=== PATIENT | female | born 1960 | race Two or more races ===

== ENCOUNTER 2024-03-16 11:21 | Inpatient (IN) | payer OTHER, MEDICAID ==
[~2024-03-16] VITALS: Ht 175.3 cm; Wt 86.9 kg
[~2024-03-16 11:21] MED LIST: BACL20TA PO; LEVO25TA6 PO; LISI20TA56 PO; MET25T PO; METR-344 PO; PANT40T PO; QUET200T30 PO; SEMA2INJ3 SC; SENN-58 PO; SULF400T11 PO; [UNRECOGNIZED DRUG - CODE] IV
[2024-03-16 11:30] VITALS: PULSE 74; RESP 28; O2SAT 95
[2024-03-16] MEDS: SODIUM CHLORIDE 0.9% 1,000 ML IVB ONE (11:50)
[2024-03-16] MEDS: SUCCINYLCHOLINE CHLORIDE 20 MG/ML 10ML VIAL IV ONE ×2 (12:01→12:04)
[2024-03-16] MEDS: ETOMIDATE (2MG/ML) 20ML VIAL IV ONE ×2 (12:01→12:03)
[2024-03-16] MEDS: MIDAZOLAM DRIP 50 mg/50mL 50 ML IV ONE (12:15)
[2024-03-16] MEDS: MIDAZOLAM DRIP 50 mg/50mL 50 ML IV SCH (12:22)
[2024-03-16 12:27] LABS: Urine Bacteria MANY /hpf (None Seen); Urine Blood 1+ /uL (Negative); Urine Budding Yeast MANY /hpf (None Seen); Urine Clarity Ex.Turbid (Clear); Urine Color Yellow (Yellow); Urine Protein, UAD 2+ (Negative); Urine Urobilinogen Normal (Negative); Urine WBC 109 /hpf (0 - 5); Urine WBC Clumps PRESENT /hpf (None Seen)
[2024-03-16] MEDS: fentaNYL Drip 2500mCg/250mlNS 250 ML IV SCH (12:37)
[2024-03-16] MEDS ORDERED: EPINEPHrine HCL 250 ML IV SCH (12:45)
[2024-03-16] MEDS: NOREPINEPHRINE 8 MG/250ML KIT 250 ML IV SCH (13:00)
[2024-03-16 13:38] LABS: Basophils # (auto) 0.1 10 ^3/uL (0-0.2); Basophils % (auto) 0.4 % (0.0-2.0); Eosinophils # (auto) 0 10 ^3/uL (0-0.8); Hematocrit 26.9 % (36.0-46.0); Hemoglobin 8.3 g/dL (12.2-16.2); Lymphocytes # (auto) 0.7 10 ^3/uL (0.4-5.4); Lymphocytes % (auto) 3.9 % (10.0-50.0); Mean Corpuscular Hgb Conc. 30.6 g/dL (32.0-36.0); Mean Corpuscular Volume 88.2 fL (80.0-100.0); Monocytes # (auto) 2.2 10 ^3/uL (0-1.3); Monocytes % (auto) 12.2 % (0.0-12.0); Neutrophils # (auto) 15.2 10 ^3/uL (1.6-8.6); Neutrophils % (auto) 83.5 % (37.0-80.0); Platelet Count (auto) 268 10^3/uL (140-450); Red Blood Cells 3.05 10^6/uL (4.0-5.20); White Blood Cell 18.3 10^3/uL (4.4-10.8)
[2024-03-16 13:40] LABS: Red Cell Distribution Width 22.1 % (11.8-14.3)
[2024-03-16 13:50] LABS: Albumin 3.2 g/dL (3.2-4.8); Alkaline Phosphatase 97 U/L (46-116); Anion Gap 14 (5-15); Aspartate Aminotransferase 9 U/L (13-40); BUN/Creatinine Ratio 17.9 (10.0-20.0); Bilirubin, Total 0.2 mg/dL (0.2-1.0); Blood Urea Nitrogen 38 mg/dL (9-23); Calcium 9.9 mg/dL (8.7-10.4); Carbon Dioxide 15 mmol/L (20-31); Chloride 115 mmol/L (98-107); Glucose 104 mg/dL (74-106); Potassium 3.9 mmol/L (3.5-5.1); Sodium 144 mmol/L (136-145); Total Protein 5.1 g/dL (5.7-8.2)
[2024-03-16] MEDS: cefTRIAXone 1GM/50ML D5W 50 ML IV ONE (13:52)
[2024-03-16] MEDS: VANCOMYCIN 1GM/200ML PREMIX 200 ML IV ONE (13:52)
[2024-03-16] MEDS: SODIUM CHLORIDE 0.9% 1,800 ML IV ONE (13:52)
[2024-03-16 13:55] LABS: Alanine Aminotransferase < 9 U/L (7-40)
[2024-03-16] MEDS: NOREPINEPHRINE 8 MG/250ML KIT 250 ML IV ONE (14:02)
[2024-03-16] MEDS ORDERED: LEVO-848 PO (15:06)
[2024-03-16] MEDS ORDERED: CEFE2INJ IV (15:06)
[2024-03-16] MEDS ORDERED: PANT1INJ3 PO (15:06)
[2024-03-16] MEDS ORDERED: METO200T42 PO (15:06)
[2024-03-16] MEDS ORDERED: QUET300T14 PO (15:06)
[2024-03-16] MEDS ORDERED: ZOFR4T PO (15:06)
[2024-03-16] MEDS ORDERED: PREG200C19 PO (15:06)
[2024-03-16] MEDS ORDERED: APIX5TAB PO (15:06)
[2024-03-16] MEDS ORDERED: HYDR50TA69 PO (15:06)
[2024-03-16] MEDS ORDERED: OXYC325T14 PO (15:06)
[2024-03-16] MEDS ORDERED: ESCI10TA PO (15:06)
[2024-03-16 15:17] LABS: Base Excess -11.4 mmol/L (-2.0-3.0)
[2024-03-16 16:30] VITALS: BP 111/71; PULSE 72; RESP 18; O2SAT 94
[2024-03-16] MEDS ORDERED: VANCOMYCIN PER PHARMACY 0 MG IV SCH (17:45)
[2024-03-16] MEDS: CEFEPIME 1GM/ 50ML 50 ML IV ONE (18:56)
[2024-03-16 19:30] VITALS: PULSE 64; RESP 16; O2SAT 100
[2024-03-16] MEDS: VANCOMYCIN 500 MG in D5W 5% 100 ML IV ONE (19:34)
[2024-03-16] MEDS: SODIUM BICARB 50mEq/50ml Vial 50 ML in D5W 5% 1,000 ML IV ONE (19:35)
[2024-03-16 19:43] VITALS: BP 118/73; PULSE 70; RESP 17; O2SAT 95
[2024-03-16 19:52] LABS: Triglycerides 162 mg/dL (< 150)
[2024-03-16 19:53] LABS: LDL Cholesterol 103 mg/dL (< 100)
[2024-03-16 19:54] LABS: Cholesterol 194 mg/dL (< 200); HDL Cholesterol 36 mg/dL (40-59)
[2024-03-16 20:22] VITALS: BP 109/70; PULSE 71; RESP 18; O2SAT 95
[2024-03-16 21:45] VITALS: BP 112/67; PULSE 66; RESP 17; O2SAT 93
[2024-03-17] VITALS (35 sets, daily range): BP systolic 88–131; BP diastolic 37–73; PULSE 58–82; RESP 16–18; TEMP 98.4–99.6; O2SAT 89–96
[2024-03-17 04:06] LABS: Base Excess -8.5 mmol/L (-2.0-3.0)
[2024-03-17] MEDS: SODIUM BICARB 8.4% 50Meq/50ml SYR Vial IV ONE (06:44)
[2024-03-17 07:23] LABS: Hematocrit 27.6 % (36.0-46.0); Hemoglobin 8.7 g/dL (12.2-16.2); Mean Corpuscular Hemoglobin 27.1 pg (28.0-32.0); Mean Corpuscular Hgb Conc. 31.3 g/dL (32.0-36.0); Mean Corpuscular Volume 86.6 fL (80.0-100.0); Platelet Count (auto) 258 10^3/uL (140-450); Red Blood Cells 3.19 10^6/uL (4.0-5.20); White Blood Cell 14.9 10^3/uL (4.4-10.8)
[2024-03-17 07:31] LABS: Basophils % (manual) 0 (0.0-2.0); Blast Cells 0; Metamyelocytes % 0; Myelocytes % 0; Promyelocytes % 0; Reactive Lymphocytes 0
[2024-03-17 07:32] LABS: Albumin 2.9 g/dL (3.2-4.8); Alkaline Phosphatase 92 U/L (46-116); Anion Gap 12 (5-15); Aspartate Aminotransferase 11 U/L (13-40); Bilirubin, Total 0.2 mg/dL (0.2-1.0); Calcium 9.1 mg/dL (8.7-10.4); Carbon Dioxide 17 mmol/L (20-31); Chloride 115 mmol/L (98-107); Glucose 117 mg/dL (74-106); Potassium 3.6 mmol/L (3.5-5.1); Sodium 144 mmol/L (136-145); Total Protein 4.3 g/dL (5.7-8.2)
[2024-03-17 07:33] LABS: Alanine Aminotransferase < 9 U/L (7-40); Blood Urea Nitrogen 49 mg/dL (9-23)
[2024-03-17] MEDS: PANTOPRAZOLE 40 MG/10 ML VIAL INJ IV SCH (10:12)
[2024-03-17] MEDS: CEFEPIME 1GM/ 50ML 50 ML IV SCH (10:12)
[2024-03-17] MEDS: ENOXAPARIN SOD 40 MG/0.4 ML SYRINGE SC SCH (10:12)
[2024-03-17 12:38] LABS: Band Neutrophils % (manual) 14; Eosinophils % (manual) 2 (0-7); Lymphocytes % (manual) 14 (10.0-50.0); Monocytes % (manual) 7 (0-12)
[2024-03-17 12:39] LABS: Platelet Estimate Adequate
[2024-03-17] MEDS: SODIUM CHLORIDE 0.9% 1,000 ML IV SCH (13:11)
[2024-03-17 15:06] LABS: Creatinine, Urine 45.2 mg/dL (30.0-125.0)
[2024-03-17 15:09] LABS: Protein, Urine 275.2 mg/dL (1-14)
[2024-03-17 21:33] LABS: COVID19 ANTIGEN SOFIA FIA NEGATIVE (NEGATIVE); Rapid Influenza A Negative (Negative); Rapid Influenza B Negative (Negative)
[2024-03-17] MEDS: IPRATROPIUM BROM 0.5 MG/2.5ML INH SOL NEB PRN (22:20)
[2024-03-17] MEDS: ALBUTEROL SULF 2.5 MG/0.5ML(0.5%) NEB SOLN NEB PRN (22:20)
[2024-03-17] MEDS: Jevity 1.2 Cal/Fiber 1 Liter GT SCH (23:52)
[2024-03-18] VITALS (108 sets, daily range): BP systolic 75–151; BP diastolic 45–84; PULSE 74–93; RESP 12–30; TEMP 96.4–98.4; O2SAT 88–100
[2024-03-18 04:10] LABS: Basophils # (auto) 0.1 10 ^3/uL (0-0.2); Basophils % (auto) 0.7 % (0.0-2.0); Eosinophils # (auto) 0.3 10 ^3/uL (0-0.8); Eosinophils % (auto) 1.7 % (0.0-7.0); Hematocrit 28.2 % (36.0-46.0); Hemoglobin 8.9 g/dL (12.2-16.2); Lymphocytes # (auto) 1.4 10 ^3/uL (0.4-5.4); Lymphocytes % (auto) 8.2 % (10.0-50.0); Mean Corpuscular Hgb Conc. 31.7 g/dL (32.0-36.0); Mean Corpuscular Volume 84.9 fL (80.0-100.0); Monocytes # (auto) 1.5 10 ^3/uL (0-1.3); Monocytes % (auto) 9.1 % (0.0-12.0); Neutrophils # (auto) 13.5 10 ^3/uL (1.6-8.6); Neutrophils % (auto) 80.3 % (37.0-80.0); Platelet Count (auto) 235 10^3/uL (140-450); Red Blood Cells 3.32 10^6/uL (4.0-5.20); White Blood Cell 16.8 10^3/uL (4.4-10.8)
[2024-03-18 04:11] LABS: Chloride 116 mmol/L (98-107); Potassium 3.2 mmol/L (3.5-5.1); Sodium 144 mmol/L (136-145)
[2024-03-18 04:12] LABS: Anion Gap 9 (5-15); Calcium 9.3 mg/dL (8.7-10.4); Carbon Dioxide 19 mmol/L (20-31)
[2024-03-18 04:17] LABS: BUN/Creatinine Ratio 18.1 (10.0-20.0); Blood Urea Nitrogen 43 mg/dL (9-23); Glucose 88 mg/dL (74-106)
[2024-03-18 04:29] LABS: Red Cell Distribution Width 22.2 % (11.8-14.3)
[2024-03-18 07:21] LABS: Base Excess -10.3 mmol/L (-2.0-3.0)
[2024-03-18] MEDS: POTASSIUM EFFERVESENT TAB 25 MEQ PO ONE (09:37)
[2024-03-18 09:46] LABS: Base Excess -10.7 mmol/L (-2.0-3.0)
[2024-03-18] MEDS: SODIUM BICARB 50mEq/50ml Vial 100 ML in SOD CHL 0.45% 1,000 ML IV ONE (09:54)
[2024-03-18] MEDS: SODIUM BICARB 8.4% 50Meq/50ml SYR Vial IV ONE (09:56)
[2024-03-18] MEDS: HYDROCORTISONE SOD SUCC 100 MG/2ML INJ VIAL IV SCH (09:56)
[2024-03-18] MEDS: ENOXAPARIN SOD 30 MG/0.3 ML SYRINGE SC SCH (10:00)
[2024-03-18] MEDS: MEROPENEM 1GM IVPB 50 ML IV SCH (10:04)
[2024-03-18 14:51] LABS: Base Excess -5.5 mmol/L (-2.0-3.0)
[2024-03-18 16:44] LABS: Albumin 3.2 g/dL (3.2-4.8); Alkaline Phosphatase 110 U/L (46-116); Anion Gap 10 (5-15); Aspartate Aminotransferase 21 U/L (13-40); BUN/Creatinine Ratio 16.6 (10.0-20.0); Bilirubin, Total 0.2 mg/dL (0.2-1.0); Blood Urea Nitrogen 40 mg/dL (9-23); Calcium 9.3 mg/dL (8.7-10.4); Carbon Dioxide 20 mmol/L (20-31); Chloride 114 mmol/L (98-107); Glucose 125 mg/dL (74-106); Sodium 144 mmol/L (136-145)
[2024-03-18 16:45] LABS: Alanine Aminotransferase < 9 U/L (7-40); Potassium 5.3 mmol/L (3.5-5.1)
[2024-03-18] MEDS: NOREPINEPHRINE 8 MG/250ML KIT 250 ML IV SCH (16:45)
[2024-03-18] MEDS ORDERED: SODIUM BICARB 50mEq/50ml Vial 100 ML in SOD CHL 0.45% 1,000 ML IV ONE (18:00)
[2024-03-18] MEDS: FUROSEMIDE 100 MG/10ML VIAL IV ONE (18:46)
[2024-03-18] MEDS: SODIUM BICARB 50mEq/50ml Vial 75 ML in SOD CHL 0.45% 1,000 ML IV SCH (23:09)
[2024-03-19] VITALS (109 sets, daily range): BP systolic 76–151; BP diastolic 43–85; PULSE 70–101; RESP 12–31; TEMP 97.7–99; O2SAT 86–98
[2024-03-19 04:34] LABS: Anion Gap 10 (5-15); Carbon Dioxide 22 mmol/L (20-31); Chloride 114 mmol/L (98-107); Potassium 3.9 mmol/L (3.5-5.1); Sodium 146 mmol/L (136-145)
[2024-03-19 04:36] LABS: Calcium 8.9 mg/dL (8.7-10.4)
[2024-03-19 04:40] LABS: Glucose 151 mg/dL (74-106)
[2024-03-19 04:41] LABS: BUN/Creatinine Ratio 19.4 (10.0-20.0); Blood Urea Nitrogen 49 mg/dL (9-23)
[2024-03-19 06:45] LABS: Base Excess -3.7 mmol/L (-2.0-3.0)
[2024-03-19] MEDS: FREE WATER GT SCH (12:16)
[2024-03-19] MEDS: MAGNESIUM SULFATE 1GM/100ML 100 ML IV ONE (12:36)
[2024-03-19] MEDS: FUROSEMIDE 100 MG/10ML VIAL IV ONE (15:18)
[2024-03-19] MEDS ORDERED: VANCOMYCIN 500 MG in D5W 5% 100 ML IV ONE (20:00)
[2024-03-19] MEDS: LINEZOLID 600MG/300ML 300 ML IV SCH (21:50)
[2024-03-20] VITALS (105 sets, daily range): BP systolic 87–184; BP diastolic 48–106; PULSE 59–89; RESP 12–22; TEMP 97.5–99.1; O2SAT 88–100
[2024-03-20 04:32] LABS: Basophils # (auto) 0 10 ^3/uL (0-0.2); Basophils % (auto) 0.1 % (0.0-2.0); Eosinophils # (auto) 0 10 ^3/uL (0-0.8); Hemoglobin 7.8 g/dL (12.2-16.2); Monocytes # (auto) 0.6 10 ^3/uL (0-1.3); Neutrophils # (auto) 13.4 10 ^3/uL (1.6-8.6); Nucleated Red Blood Cells % 0.1 %; White Blood Cell 15.1 10^3/uL (4.4-10.8)
[2024-03-20 04:40] LABS: Hematocrit 23.5 % (36.0-46.0); Lymphocytes # (auto) 1.1 10 ^3/uL (0.4-5.4); Lymphocytes % (auto) 7.1 % (10.0-50.0); Mean Corpuscular Hemoglobin 27.1 pg (28.0-32.0); Mean Corpuscular Hgb Conc. 33.3 g/dL (32.0-36.0); Mean Corpuscular Volume 81.3 fL (80.0-100.0); Monocytes % (auto) 4.1 % (0.0-12.0); Neutrophils % (auto) 88.7 % (37.0-80.0); Platelet Count (auto) 224 10^3/uL (140-450); Red Blood Cells 2.89 10^6/uL (4.0-5.20)
[2024-03-20 04:45] LABS: Red Cell Distribution Width 21.4 % (11.8-14.3)
[2024-03-20 06:29] LABS: Base Excess -2.9 mmol/L (-2.0-3.0)
[2024-03-20] MEDS: FUROSEMIDE INJECTION 100 MG in SODIUM CHL 0.9% 100 ML IV SCH (09:01)
[2024-03-20 09:59] LABS: Chloride 111 mmol/L (98-107); Sodium 142 mmol/L (136-145)
[2024-03-20 10:00] LABS: Anion Gap 9 (5-15); Calcium 8.7 mg/dL (8.7-10.4); Carbon Dioxide 22 mmol/L (20-31)
[2024-03-20 10:05] LABS: BUN/Creatinine Ratio 19.2 (10.0-20.0); Blood Urea Nitrogen 55 mg/dL (9-23); Glucose 186 mg/dL (74-106)
[2024-03-20] MEDS: ACETYLCYSTEINE 10 %(100MG/ML) SOL 4ML NEB SCH (11:54)
[2024-03-20] MEDS: FREE WATER GT SCH (12:34)
[2024-03-20] MEDS: SODIUM CHL 0.9% 1000 ML BAG XX ONE (14:15)
[2024-03-20 15:27] LABS: INR 1.18 (0.9-1.15); Prothrombin Time 12.4 sec (9.3-11.8)
[2024-03-20] MEDS: ALBUMIN 25% 100 ML IV PRN (16:00)
[2024-03-20] MEDS: NOREPINEPHRINE 8 MG/250ML KIT 250 ML IV SCH (16:40)
[2024-03-20] MEDS: EPOETIN ALFA-EPBX 10,000 UNIT/1ML VIAL SC ONE (22:18)
[2024-03-21] VITALS (115 sets, daily range): BP systolic 101–177; BP diastolic 58–100; PULSE 60–98; RESP 18–21; TEMP 97.2–98.1; O2SAT 90–100
[2024-03-21 04:20] LABS: Chloride 108 mmol/L (98-107); Potassium 3.7 mmol/L (3.5-5.1); Sodium 142 mmol/L (136-145)
[2024-03-21 04:21] LABS: Anion Gap 9 (5-15); Calcium 8.7 mg/dL (8.7-10.4); Carbon Dioxide 25 mmol/L (20-31)
[2024-03-21 04:26] LABS: BUN/Creatinine Ratio 17.3 (10.0-20.0); Glucose 157 mg/dL (74-106)
[2024-03-21 04:29] LABS: Blood Urea Nitrogen 39 mg/dL (9-23)
[2024-03-21 04:45] LABS: Basophils # (auto) 0 10 ^3/uL (0-0.2); Eosinophils # (auto) 0 10 ^3/uL (0-0.8); Hematocrit 21.2 % (36.0-46.0); Mean Corpuscular Volume 82.1 fL (80.0-100.0); Neutrophils # (auto) 10.8 10 ^3/uL (1.6-8.6); Nucleated Red Blood Cells % 0.1 %
[2024-03-21 04:49] LABS: Basophils % (auto) 0.1 % (0.0-2.0); Eosinophils % (auto) 0.1 % (0.0-7.0); Hemoglobin 7.1 g/dL (12.2-16.2); Lymphocytes # (auto) 0.5 10 ^3/uL (0.4-5.4); Lymphocytes % (auto) 4.3 % (10.0-50.0); Mean Corpuscular Hemoglobin 27.4 pg (28.0-32.0); Mean Corpuscular Hgb Conc. 33.4 g/dL (32.0-36.0); Monocytes # (auto) 0.6 10 ^3/uL (0-1.3); Monocytes % (auto) 4.9 % (0.0-12.0); Neutrophils % (auto) 90.6 % (37.0-80.0); Platelet Count (auto) 163 10^3/uL (140-450); Red Blood Cells 2.59 10^6/uL (4.0-5.20)
[2024-03-21] MEDS: MIDAZOLAM DRIP 50 mg/50mL 50 ML IV SCH (07:00)
[2024-03-21] MEDS: BUMETANIDE INJECTION 25 MG in GIVE UN-DILUTED 0 ML IV SCH (09:30)
[2024-03-21] MEDS: DOPamine 1600MCG/ML D5W 250 ML IV SCH (10:41)
[2024-03-21] MEDS: hydrALAZINE HCL 20 MG/ML VL IV PRN (12:23)
[2024-03-21 12:59] LABS: Protein, Urine 89.3 mg/dL (1-14)
[2024-03-21 13:18] LABS: Creatinine, Urine 8.81 mg/dL (30.0-125.0); Urine Protein/Creatinine Ratio 10.14
[2024-03-22] VITALS (112 sets, daily range): BP systolic 102–187; BP diastolic 72–110; PULSE 65–143; RESP 17–26; TEMP 97.9–99.1; O2SAT 90–100
[2024-03-22 03:41] LABS: Basophils # (auto) 0 10 ^3/uL (0-0.2); Basophils % (auto) 0.2 % (0.0-2.0); Eosinophils # (auto) 0 10 ^3/uL (0-0.8); Eosinophils % (auto) 0.2 % (0.0-7.0); Hematocrit 35.3 % (36.0-46.0); Hemoglobin 11.6 g/dL (12.2-16.2); Lymphocytes # (auto) 0.6 10 ^3/uL (0.4-5.4); Lymphocytes % (auto) 3.3 % (10.0-50.0); Mean Corpuscular Hemoglobin 27.8 pg (28.0-32.0); Mean Corpuscular Volume 84.2 fL (80.0-100.0); Monocytes # (auto) 1.2 10 ^3/uL (0-1.3); Monocytes % (auto) 6.5 % (0.0-12.0); Neutrophils # (auto) 16.7 10 ^3/uL (1.6-8.6); Neutrophils % (auto) 89.8 % (37.0-80.0); Nucleated Red Blood Cells % 0.1 %; Platelet Count (auto) 209 10^3/uL (140-450); Red Blood Cells 4.19 10^6/uL (4.0-5.20); White Blood Cell 18.6 10^3/uL (4.4-10.8)
[2024-03-22 03:55] LABS: Anion Gap 10 (5-15); Carbon Dioxide 24 mmol/L (20-31); Chloride 106 mmol/L (98-107); Potassium 4.1 mmol/L (3.5-5.1); Sodium 140 mmol/L (136-145)
[2024-03-22 03:57] LABS: Calcium 9.2 mg/dL (8.7-10.4)
[2024-03-22 04:01] LABS: BUN/Creatinine Ratio 18.3 (10.0-20.0); Blood Urea Nitrogen 45 mg/dL (9-23); Glucose 134 mg/dL (74-106)
[2024-03-22 04:16] LABS: Red Cell Distribution Width 21.2 % (11.8-14.3)
[2024-03-22 05:00] LABS: Anisocytosis Slight; Stomatocytes Few
[2024-03-22 05:01] LABS: Large Platelets FEW
[2024-03-22 05:02] LABS: Platelet Estimate Adequa
[2024-03-22 07:42] LABS: Base Excess -2.8 mmol/L (-2.0-3.0)
[2024-03-23] VITALS (104 sets, daily range): BP systolic 51–179; BP diastolic 28–107; PULSE 81–99; RESP 15–39; TEMP 97.9–99.5; O2SAT 90–97
[2024-03-23 04:26] LABS: Basophils # (auto) 0 10 ^3/uL (0-0.2); Basophils % (auto) 0.3 % (0.0-2.0); Eosinophils # (auto) 0 10 ^3/uL (0-0.8); Eosinophils % (auto) 0.1 % (0.0-7.0); Hematocrit 30.8 % (36.0-46.0); Hemoglobin 10.2 g/dL (12.2-16.2); Lymphocytes # (auto) 0.5 10 ^3/uL (0.4-5.4); Lymphocytes % (auto) 3.1 % (10.0-50.0); Mean Corpuscular Hgb Conc. 33.1 g/dL (32.0-36.0); Mean Corpuscular Volume 84.5 fL (80.0-100.0); Monocytes # (auto) 0.8 10 ^3/uL (0-1.3); Monocytes % (auto) 5.2 % (0.0-12.0); Neutrophils # (auto) 13.8 10 ^3/uL (1.6-8.6); Neutrophils % (auto) 91.3 % (37.0-80.0); Nucleated Red Blood Cells % 0.1 %; Platelet Count (auto) 231 10^3/uL (140-450); Red Blood Cells 3.64 10^6/uL (4.0-5.20); White Blood Cell 15.1 10^3/uL (4.4-10.8)
[2024-03-23 04:27] LABS: Anion Gap 13 (5-15); Calcium 8.8 mg/dL (8.7-10.4); Carbon Dioxide 22 mmol/L (20-31); Chloride 104 mmol/L (98-107); Potassium 4.2 mmol/L (3.5-5.1); Sodium 139 mmol/L (136-145)
[2024-03-23 04:33] LABS: BUN/Creatinine Ratio 20.1 (10.0-20.0); Glucose 176 mg/dL (74-106)
[2024-03-23 04:45] LABS: Blood Urea Nitrogen 57 mg/dL (9-23)
[2024-03-23 06:46] LABS: Anisocytosis Slight
[2024-03-23 06:47] LABS: Large Platelets FEW; Ovalocytes FEW; Stomatocytes Few
[2024-03-23 06:48] LABS: Platelet Estimate Adequa
[2024-03-23 07:33] LABS: Base Excess -1.7 mmol/L (-2.0-3.0)
[2024-03-23] MEDS: SODIUM CHL 0.9% 1000 ML BAG XX ONE (11:09)
[2024-03-24] VITALS (71 sets, daily range): BP systolic 79–160; BP diastolic 54–97; PULSE 81–96; RESP 12–19; TEMP 98.3–98.8; O2SAT 91–100
[2024-03-24 03:56] LABS: Hematocrit 28.1 % (36.0-46.0); Hemoglobin 9.4 g/dL (12.2-16.2); Mean Corpuscular Hemoglobin 28.2 pg (28.0-32.0); Mean Corpuscular Hgb Conc. 33.4 g/dL (32.0-36.0); Mean Corpuscular Volume 84.4 fL (80.0-100.0); Platelet Count (auto) 233 10^3/uL (140-450); Red Blood Cells 3.33 10^6/uL (4.0-5.20); White Blood Cell 14.7 10^3/uL (4.4-10.8)
[2024-03-24 04:10] LABS: Anion Gap 14 (5-15); Carbon Dioxide 22 mmol/L (20-31); Chloride 103 mmol/L (98-107); Potassium 3.8 mmol/L (3.5-5.1); Sodium 139 mmol/L (136-145)
[2024-03-24 04:11] LABS: Calcium 8.7 mg/dL (8.7-10.4)
[2024-03-24 04:16] LABS: BUN/Creatinine Ratio 20.3 (10.0-20.0); Blood Urea Nitrogen 60 mg/dL (9-23); Glucose 144 mg/dL (74-106)
[2024-03-24 04:42] LABS: Red Cell Distribution Width 21.6 % (11.8-14.3)
[2024-03-24 04:44] LABS: Basophils % (manual) 0 (0.0-2.0); Blast Cells 0; Eosinophils % (manual) 0 (0-7); Myelocytes % 0; Promyelocytes % 0; Reactive Lymphocytes 0
[2024-03-24 06:18] LABS: Base Excess -4.7 mmol/L (-2.0-3.0)
[2024-03-24 06:34] LABS: Anisocytosis Slight; Band Neutrophils % (manual) 1; Large Platelets FEW; Lymphocytes % (manual) 4 (10.0-50.0); Metamyelocytes % 1; Monocytes % (manual) 6 (0-12); Platelet Estimate Adequate
[2024-03-24 06:35] LABS: Stomatocytes Few
[2024-03-24] MEDS: MICAFUNGIN SODIUM 100 MG in SODIUM CHL 0.9% 100 ML IV SCH (14:09)
[2024-03-25] VITALS (105 sets, daily range): BP systolic 69–148; BP diastolic 47–92; PULSE 79–114; RESP 14–32; TEMP 97.2–100.9; O2SAT 92–100
[2024-03-25 04:49] LABS: Hemoglobin 8.3 g/dL (12.2-16.2)
[2024-03-25 04:54] LABS: Anion Gap 12 (5-15); Carbon Dioxide 23 mmol/L (20-31); Chloride 103 mmol/L (98-107); Hematocrit 25.2 % (36.0-46.0); Mean Corpuscular Hemoglobin 27.9 pg (28.0-32.0); Mean Corpuscular Hgb Conc. 32.8 g/dL (32.0-36.0); Mean Corpuscular Volume 85.2 fL (80.0-100.0); Platelet Count (auto) 219 10^3/uL (140-450); Potassium 3.2 mmol/L (3.5-5.1); Red Blood Cells 2.96 10^6/uL (4.0-5.20); Sodium 138 mmol/L (136-145); White Blood Cell 15.8 10^3/uL (4.4-10.8)
[2024-03-25 04:55] LABS: Calcium 8.2 mg/dL (8.7-10.4)
[2024-03-25 05:00] LABS: BUN/Creatinine Ratio 21.5 (10.0-20.0); Blood Urea Nitrogen 64 mg/dL (9-23); Glucose 106 mg/dL (74-106)
[2024-03-25 05:09] LABS: Band Neutrophils % (manual) 0; Basophils % (manual) 0 (0.0-2.0); Blast Cells 0; Myelocytes % 0; Promyelocytes % 0; Reactive Lymphocytes 0; Red Cell Distribution Width 21.3 % (11.8-14.3)
[2024-03-25 06:31] LABS: Base Excess -1.8 mmol/L (-2.0-3.0)
[2024-03-25 07:59] LABS: Anisocytosis Slight; Eosinophils % (manual) 1 (0-7); Lymphocytes % (manual) 12 (10.0-50.0); Metamyelocytes % 2; Monocytes % (manual) 10 (0-12); Platelet Estimate Adequate
[2024-03-25] MEDS: POTASSIUM CHL 20MEQ/100ML 100 ML IV ONE (09:42)
[2024-03-25] MEDS: POTASSIUM CHLORIDE 20 MEQ in D5W 5% 1,000 ML IV SCH (13:15)
[2024-03-26] VITALS (106 sets, daily range): BP systolic 60–164; BP diastolic 40–86; PULSE 82–105; RESP 12–29; TEMP 98.1–99.3; O2SAT 95–100
[2024-03-26 04:12] LABS: Chloride 102 mmol/L (98-107); Potassium 3.9 mmol/L (3.5-5.1); Sodium 138 mmol/L (136-145)
[2024-03-26 04:13] LABS: Anion Gap 10 (5-15); Carbon Dioxide 26 mmol/L (20-31)
[2024-03-26 04:14] LABS: Calcium 8.1 mg/dL (8.7-10.4); Hemoglobin 7.4 g/dL (12.2-16.2)
[2024-03-26 04:18] LABS: BUN/Creatinine Ratio 18.1 (10.0-20.0); Glucose 108 mg/dL (74-106)
[2024-03-26 04:20] LABS: Hematocrit 22.3 % (36.0-46.0); Mean Corpuscular Hemoglobin 28.4 pg (28.0-32.0); Mean Corpuscular Hgb Conc. 33.2 g/dL (32.0-36.0); Mean Corpuscular Volume 85.4 fL (80.0-100.0); Platelet Count (auto) 173 10^3/uL (140-450); Red Blood Cells 2.61 10^6/uL (4.0-5.20); White Blood Cell 12.2 10^3/uL (4.4-10.8)
[2024-03-26 04:25] LABS: Blood Urea Nitrogen 37 mg/dL (9-23)
[2024-03-26 04:27] LABS: Red Cell Distribution Width 21.1 % (11.8-14.3)
[2024-03-26 04:29] LABS: Basophils % (manual) 0 (0.0-2.0); Blast Cells 0; Metamyelocytes % 0; Myelocytes % 0; Promyelocytes % 0
[2024-03-26 06:43] LABS: Band Neutrophils % (manual) 1; Eosinophils % (manual) 1 (0-7); Lymphocytes % (manual) 11 (10.0-50.0)
[2024-03-26 06:52] LABS: Anisocytosis Slight; Monocytes % (manual) 7 (0-12); Platelet Estimate Adequate
[2024-03-26 06:53] LABS: Base Excess 1.4 mmol/L (-2.0-3.0)
[2024-03-26 06:53] LABS: Large Platelets FEW
[2024-03-26 06:54] LABS: Target Cell FEW
[2024-03-26] MEDS: Nepro With Carb Steady 1 Liter Bottle GT SCH (15:00)
[2024-03-26] MEDS: LACTULOSE 20Gm/30ML SOLN GT SCH (22:19)
[2024-03-27] VITALS (105 sets, daily range): BP systolic 77–168; BP diastolic 47–97; PULSE 75–120; RESP 10–30; TEMP 97–99.2; O2SAT 80–100
[2024-03-27 04:08] LABS: Basophils # (auto) 0 10 ^3/uL (0-0.2); Basophils % (auto) 0.1 % (0.0-2.0); Eosinophils # (auto) 0 10 ^3/uL (0-0.8); Eosinophils % (auto) 0.1 % (0.0-7.0); Monocytes # (auto) 0.8 10 ^3/uL (0-1.3); Monocytes % (auto) 6.6 % (0.0-12.0)
[2024-03-27 04:14] LABS: Lymphocytes # (auto) 0.7 10 ^3/uL (0.4-5.4); Lymphocytes % (auto) 5.6 % (10.0-50.0); Mean Corpuscular Hemoglobin 28.4 pg (28.0-32.0); Mean Corpuscular Hgb Conc. 32.9 g/dL (32.0-36.0); Mean Corpuscular Volume 86.3 fL (80.0-100.0); Neutrophils # (auto) 10.3 10 ^3/uL (1.6-8.6); Neutrophils % (auto) 87.6 % (37.0-80.0); Nucleated Red Blood Cells % 0.1 %; Platelet Count (auto) 133 10^3/uL (140-450); Red Blood Cells 1.97 10^6/uL (4.0-5.20); White Blood Cell 11.7 10^3/uL (4.4-10.8)
[2024-03-27 04:16] LABS: Anion Gap 10 (5-15); Carbon Dioxide 27 mmol/L (20-31); Chloride 103 mmol/L (98-107); Potassium 3.1 mmol/L (3.5-5.1); Sodium 140 mmol/L (136-145)
[2024-03-27 04:18] LABS: Calcium 8.6 mg/dL (8.7-10.4)
[2024-03-27 04:22] LABS: BUN/Creatinine Ratio 19.6 (10.0-20.0); Blood Urea Nitrogen 45 mg/dL (9-23); Glucose 129 mg/dL (74-106)
[2024-03-27 04:45] LABS: Hemoglobin 5.6 g/dL (12.2-16.2); Red Cell Distribution Width 21.3 % (11.8-14.3)
[2024-03-27] MEDS: POTASSIUM CHL 20MEQ/100ML 100 ML IV ONE (05:30)
[2024-03-27 06:42] LABS: Base Excess 2.6 mmol/L (-2.0-3.0)
[2024-03-27] MEDS: HEPARIN 1,000 UNITS/ml 1ML VIAL IV ONE (12:45)
[2024-03-27] MEDS: HEPARIN 1,000 UNITS/ml 1ML VIAL ONE (13:14)
[2024-03-27] MEDS: ONDANSETRON HCL 4 MG/2 ML VIAL ONE (14:37)
[2024-03-27] MEDS: EPOETIN ALFA-EPBX 10,000 UNIT/1ML VIAL SC SCH (22:05)
[2024-03-27] MEDS: BUMETANIDE 2.5mg/10ml (0.25 mg/ml) INJ IV SCH (22:15)
[2024-03-28] VITALS (98 sets, daily range): BP systolic 105–162; BP diastolic 60–112; PULSE 77–101; RESP 9–31; TEMP 97.9–98.2; O2SAT 94–100
[2024-03-28 04:11] LABS: Basophils # (auto) 0 10 ^3/uL (0-0.2); Basophils % (auto) 0.1 % (0.0-2.0); Eosinophils # (auto) 0 10 ^3/uL (0-0.8); Eosinophils % (auto) 0.2 % (0.0-7.0); Hematocrit 25.1 % (36.0-46.0); Hemoglobin 8.5 g/dL (12.2-16.2); Lymphocytes # (auto) 1.1 10 ^3/uL (0.4-5.4); Lymphocytes % (auto) 10.2 % (10.0-50.0); Mean Corpuscular Hemoglobin 28.3 pg (28.0-32.0); Mean Corpuscular Hgb Conc. 34.1 g/dL (32.0-36.0); Monocytes # (auto) 0.6 10 ^3/uL (0-1.3); Monocytes % (auto) 5.8 % (0.0-12.0); Neutrophils # (auto) 9.2 10 ^3/uL (1.6-8.6); Neutrophils % (auto) 83.7 % (37.0-80.0); Nucleated Red Blood Cells % 0.1 %; Platelet Count (auto) 120 10^3/uL (140-450); Red Blood Cells 3.02 10^6/uL (4.0-5.20); Red Cell Distribution Width 19.1 % (11.8-14.3)
[2024-03-28 04:18] LABS: Chloride 104 mmol/L (98-107); Potassium 2.8 mmol/L (3.5-5.1); Sodium 141 mmol/L (136-145)
[2024-03-28 04:19] LABS: Anion Gap 10 (5-15); Calcium 8.5 mg/dL (8.7-10.4); Carbon Dioxide 27 mmol/L (20-31)
[2024-03-28 04:24] LABS: BUN/Creatinine Ratio 16.8 (10.0-20.0); Glucose 94 mg/dL (74-106)
[2024-03-28 04:26] LABS: Blood Urea Nitrogen 26 mg/dL (9-23)
[2024-03-28] MEDS: POTASSIUM CHL 20MEQ/100ML 100 ML IV SCH ×2 (05:50→15:01)
[2024-03-28 06:35] LABS: Base Excess 3.1 mmol/L (-2.0-3.0)
[2024-03-28] MEDS: MAGNESIUM SULFATE 1GM/100ML 100 ML IV ONE (08:24)
[2024-03-28 12:46] LABS: Potassium 3.1 mmol/L (3.5-5.1)
[2024-03-28 12:53] LABS: Magnesium 1.9 mg/dL (1.6-2.6)
[2024-03-29] VITALS (80 sets, daily range): BP systolic 119–173; BP diastolic 47–104; PULSE 74–95; RESP 11–32; TEMP 98.1–98.9; O2SAT 96–100
[2024-03-29 04:59] LABS: Basophils # (auto) 0 10 ^3/uL (0-0.2); Eosinophils # (auto) 0 10 ^3/uL (0-0.8); Eosinophils % (auto) 0.4 % (0.0-7.0); Hemoglobin 7.5 g/dL (12.2-16.2); Red Blood Cells 2.63 10^6/uL (4.0-5.20); White Blood Cell 9.3 10^3/uL (4.4-10.8)
[2024-03-29 05:03] LABS: Basophils % (auto) 0.3 % (0.0-2.0); Hematocrit 22.1 % (36.0-46.0); Lymphocytes # (auto) 0.9 10 ^3/uL (0.4-5.4); Lymphocytes % (auto) 9.6 % (10.0-50.0); Mean Corpuscular Hemoglobin 28.4 pg (28.0-32.0); Mean Corpuscular Hgb Conc. 33.8 g/dL (32.0-36.0); Mean Corpuscular Volume 83.9 fL (80.0-100.0); Monocytes # (auto) 0.5 10 ^3/uL (0-1.3); Monocytes % (auto) 5.1 % (0.0-12.0); Neutrophils # (auto) 7.9 10 ^3/uL (1.6-8.6); Neutrophils % (auto) 84.6 % (37.0-80.0); Nucleated Red Blood Cells % 0.2 %; Platelet Count (auto) 88 10^3/uL (140-450); Red Cell Distribution Width 19.3 % (11.8-14.3)
[2024-03-29 05:09] LABS: Chloride 103 mmol/L (98-107); Sodium 140 mmol/L (136-145)
[2024-03-29 05:10] LABS: Anion Gap 10 (5-15); Carbon Dioxide 27 mmol/L (20-31)
[2024-03-29 05:11] LABS: Calcium 8.5 mg/dL (8.7-10.4)
[2024-03-29 05:15] LABS: BUN/Creatinine Ratio 15.2 (10.0-20.0); Blood Urea Nitrogen 26 mg/dL (9-23); Glucose 86 mg/dL (74-106)
[2024-03-29] MEDS: POTASSIUM CHL 20MEQ/100ML 100 ML IV ONE (05:48)
[2024-03-29] MEDS: LINEZOLID 600MG/300ML 300 ML IV SCH (09:08)
[2024-03-29] MEDS: POTASSIUM CHL 20MEQ/100ML 100 ML IV SCH (09:10)
[2024-03-29] MEDS: MORPHINE SULFATE INJ 2 MG/ml SYRG IV PRN (15:19)
[2024-03-29] MEDS: EPOETIN ALFA-EPBX 10,000 UNIT/1ML VIAL SC SCH (22:00)
[2024-03-30] VITALS (63 sets, daily range): BP systolic 119–169; BP diastolic 54–117; PULSE 66–99; RESP 2–41; TEMP 98.1–98.6; O2SAT 94–100
[2024-03-30 04:43] LABS: Basophils # (auto) 0 10 ^3/uL (0-0.2); Eosinophils # (auto) 0.1 10 ^3/uL (0-0.8); Hemoglobin 7.6 g/dL (12.2-16.2); Lymphocytes # (auto) 0.7 10 ^3/uL (0.4-5.4); Monocytes # (auto) 0.4 10 ^3/uL (0-1.3); Platelet Count (auto) 79 10^3/uL (140-450)
[2024-03-30 04:47] LABS: Basophils % (auto) 0.3 % (0.0-2.0); Eosinophils % (auto) 0.6 % (0.0-7.0); Hematocrit 22.8 % (36.0-46.0); Lymphocytes % (auto) 8.8 % (10.0-50.0); Mean Corpuscular Hemoglobin 28.5 pg (28.0-32.0); Mean Corpuscular Hgb Conc. 33.4 g/dL (32.0-36.0); Mean Corpuscular Volume 85.4 fL (80.0-100.0); Monocytes % (auto) 5.3 % (0.0-12.0); Neutrophils # (auto) 7.1 10 ^3/uL (1.6-8.6); Nucleated Red Blood Cells % 0.3 %; Red Blood Cells 2.67 10^6/uL (4.0-5.20); Red Cell Distribution Width 19.3 % (11.8-14.3); White Blood Cell 8.4 10^3/uL (4.4-10.8)
[2024-03-30 04:52] LABS: Chloride 104 mmol/L (98-107); Potassium 3.3 mmol/L (3.5-5.1); Sodium 142 mmol/L (136-145)
[2024-03-30 04:53] LABS: Anion Gap 8 (5-15); Carbon Dioxide 30 mmol/L (20-31)
[2024-03-30 04:58] LABS: BUN/Creatinine Ratio 14.4 (10.0-20.0); Blood Urea Nitrogen 15 mg/dL (9-23); Glucose 89 mg/dL (74-106)
[2024-03-30] MEDS: POTASSIUM CHL 20MEQ/100ML 100 ML IV ONE (05:55)
[2024-03-30] MEDS ORDERED: CLINIMIX PER PHARMACY 0 ML IV SCH (09:30)
[2024-03-30] MEDS: MORPHINE SULFATE INJ 2 MG/ml SYRG IV PRN (09:53)
[2024-03-30 10:34] LABS: Magnesium 1.6 mg/dL (1.6-2.6)
[2024-03-30] MEDS: MAGNESIUM SULFATE 1GM/100ML 100 ML IV SCH (13:25)
[2024-03-30] MEDS ORDERED: DEXTROSE (50%) 50ML SYRG IV SCH (14:30)
[2024-03-30] MEDS: POTASSIUM CHL 20MEQ/100ML 100 ML IV SCH (15:54)
[2024-03-30] MEDS: InsuLIN REG 1unit/0.01ml Soln (100units/ml) SC SCH (18:00)
[2024-03-30] MEDS: ACCU-CHEK COMFORT CURVE STRIP VI SCH (18:11)
[2024-03-30] MEDS: AMINO ACID INFUSION IN D10W 1,000 ML IV SCH (20:04)
[2024-03-31] VITALS (38 sets, daily range): BP systolic 124–170; BP diastolic 68–95; PULSE 62–101; RESP 10–39; TEMP 97.6–98.5; O2SAT 96–100
[2024-03-31] MEDS: LABETALOL HCL 20 MG/4 ML VL IV PRN (00:49)
[2024-03-31] MEDS: ONDANSETRON HCL 4 MG/2 ML VIAL IV PRN (00:49)
[2024-03-31 05:03] LABS: Albumin 3.5 g/dL (3.2-4.8); Alkaline Phosphatase 70 U/L (46-116); Anion Gap 7 (5-15); Aspartate Aminotransferase < 8 U/L (13-40); BUN/Creatinine Ratio 17.9 (10.0-20.0); Bilirubin, Total 0.9 mg/dL (0.2-1.0); Blood Urea Nitrogen 19 mg/dL (9-23); Calcium 8.7 mg/dL (8.7-10.4); Carbon Dioxide 30 mmol/L (20-31); Chloride 100 mmol/L (98-107); Glucose 103 mg/dL (74-106); Magnesium 1.8 mg/dL (1.6-2.6); Phosphorus 2.8 mg/dL (2.4-5.1); Potassium 3.2 mmol/L (3.5-5.1); Sodium 137 mmol/L (136-145)
[2024-03-31 05:04] LABS: Total Protein 4.9 g/dL (5.7-8.2)
[2024-03-31 05:06] LABS: Alanine Aminotransferase < 9 U/L (7-40)
[2024-03-31] MEDS: POTASSIUM CHL 20MEQ/100ML 100 ML IV ONE (06:53)
[2024-03-31 09:23] LABS: Hepatitis B Surface Antigen Negative (Negative)
[2024-03-31] MEDS ORDERED: DOCUSATE SOD 100 MG CAP PO PRN (09:30)
[2024-03-31 09:44] LABS: Hepatitis A Ab IgM Negative
[2024-03-31 09:45] LABS: Hepatitis B Core IgM Negative; Hepatitis C Antibody Negative (Negative)
[2024-03-31] MEDS: amLODIPine BESYLATE 5 MG TAB PO SCH (10:24)
[2024-03-31] MEDS: POTASSIUM CHL 20MEQ/100ML 100 ML IV SCH (10:45)
[2024-03-31] MEDS: MAGNESIUM SULFATE 1GM/100ML 100 ML IV SCH (11:00)
[2024-04-01] VITALS (34 sets, daily range): BP systolic 117–180; BP diastolic 78–94; PULSE 66–88; RESP 16–37; TEMP 97.7–98.5; O2SAT 89–99
[2024-04-01 05:04] LABS: Basophils # (auto) 0.1 10 ^3/uL (0-0.2); Eosinophils # (auto) 0.1 10 ^3/uL (0-0.8); Lymphocytes # (auto) 0.9 10 ^3/uL (0.4-5.4); Monocytes # (auto) 0.8 10 ^3/uL (0-1.3); Neutrophils # (auto) 9.2 10 ^3/uL (1.6-8.6)
[2024-04-01 05:08] LABS: Basophils % (auto) 0.6 % (0.0-2.0); Eosinophils % (auto) 0.5 % (0.0-7.0); Hematocrit 24.3 % (36.0-46.0); Hemoglobin 8.2 g/dL (12.2-16.2); Mean Corpuscular Hemoglobin 28.3 pg (28.0-32.0); Mean Corpuscular Hgb Conc. 33.7 g/dL (32.0-36.0); Monocytes % (auto) 7.2 % (0.0-12.0); Neutrophils % (auto) 83.7 % (37.0-80.0); Nucleated Red Blood Cells % 0.3 %; Platelet Count (auto) 69 10^3/uL (140-450); Red Cell Distribution Width 19.2 % (11.8-14.3)
[2024-04-01 05:14] LABS: Albumin 3.5 g/dL (3.2-4.8); Alkaline Phosphatase 69 U/L (46-116); Anion Gap 8 (5-15); Aspartate Aminotransferase < 8 U/L (13-40); BUN/Creatinine Ratio 23.7 (10.0-20.0); Blood Urea Nitrogen 22 mg/dL (9-23); Calcium 8.8 mg/dL (8.7-10.4); Carbon Dioxide 31 mmol/L (20-31); Chloride 96 mmol/L (98-107); Glucose 120 mg/dL (74-106); Magnesium 1.7 mg/dL (1.6-2.6); Potassium 2.7 mmol/L (3.5-5.1); Sodium 135 mmol/L (136-145)
[2024-04-01 05:15] LABS: Bilirubin, Total 0.9 mg/dL (0.2-1.0); Phosphorus 1.9 mg/dL (2.4-5.1); Total Protein 4.9 g/dL (5.7-8.2)
[2024-04-01 05:27] LABS: Alanine Aminotransferase < 9 U/L (7-40)
[2024-04-01] MEDS: ONDANSETRON HCL 4 MG/2 ML VIAL IV PRN (05:32)
[2024-04-01] MEDS: POTASSIUM EFFERVESENT TAB 25 MEQ PO ONE (06:26)
[2024-04-01] MEDS: POTASSIUM PHOSPHATE 44 MEQ in D5W 5% 250 ML IV ONE ×2 (07:45→14:00)
[2024-04-01] MEDS: MAGNESIUM SULFATE 1GM/100ML 100 ML IV SCH (08:35)
[2024-04-01] MEDS: METOPROLOL SUCCINATE XL 50 MG TAB PO SCH (09:43)
[2024-04-01] MEDS ORDERED: MAGNESIUM SULFATE 1GM/100ML 100 ML IV SCH (12:45)
[2024-04-01] MEDS: POTASSIUM EFFERVESENT TAB 25 MEQ PO SCH (13:24)
[2024-04-01] MEDS: POTASSIUM CHL 20MEQ/100ML 100 ML IV ONE (23:00)
[2024-04-02] VITALS (26 sets, daily range): BP systolic 123–163; BP diastolic 75–101; PULSE 78–94; RESP 15–31; TEMP 97.9–98.7; O2SAT 88–100
[2024-04-02] MEDS: HYDROcodone-ACET 5/325MG TAB PO PRN (01:47)
[2024-04-02 08:54] LABS: Basophils # (auto) 0.1 10 ^3/uL (0-0.2); Basophils % (auto) 0.7 % (0.0-2.0); Eosinophils # (auto) 0 10 ^3/uL (0-0.8); Eosinophils % (auto) 0.1 % (0.0-7.0); Hematocrit 26.2 % (36.0-46.0); Hemoglobin 8.5 g/dL (12.2-16.2); Lymphocytes # (auto) 0.9 10 ^3/uL (0.4-5.4); Lymphocytes % (auto) 6.7 % (10.0-50.0); Mean Corpuscular Hemoglobin 27.2 pg (28.0-32.0); Mean Corpuscular Hgb Conc. 32.5 g/dL (32.0-36.0); Mean Corpuscular Volume 83.5 fL (80.0-100.0); Monocytes # (auto) 1.4 10 ^3/uL (0-1.3); Monocytes % (auto) 10.8 % (0.0-12.0); Neutrophils # (auto) 10.8 10 ^3/uL (1.6-8.6); Neutrophils % (auto) 81.7 % (37.0-80.0); Platelet Count (auto) 68 10^3/uL (140-450); Red Blood Cells 3.14 10^6/uL (4.0-5.20); Red Cell Distribution Width 18.9 % (11.8-14.3); White Blood Cell 13.3 10^3/uL (4.4-10.8)
[2024-04-02 08:59] LABS: Chloride 94 mmol/L (98-107); Potassium 3.1 mmol/L (3.5-5.1); Sodium 135 mmol/L (136-145)
[2024-04-02 09:00] LABS: Anion Gap 6 (5-15); Calcium 9.2 mg/dL (8.7-10.4); Carbon Dioxide 35 mmol/L (20-31)
[2024-04-02 09:05] LABS: BUN/Creatinine Ratio 23.3 (10.0-20.0); Blood Urea Nitrogen 20 mg/dL (9-23); Glucose 97 mg/dL (74-106)
[2024-04-02 09:06] LABS: Magnesium 1.4 mg/dL (1.6-2.6)
[2024-04-02] MEDS: POTASSIUM CHL 20MEQ/100ML 100 ML IV ONE (10:13)
[2024-04-02] MEDS: MAGNESIUM SULFATE 1GM/100ML 100 ML IV SCH (12:28)
[2024-04-02] MEDS: POTASSIUM CHL 20MEQ/100ML 100 ML IV SCH (13:00)
[2024-04-02] MEDS ORDERED: POTASSIUM EFFERVESENT TAB 25 MEQ PO SCH (14:00)
[2024-04-02 14:47] LABS: Potassium 3.2 mmol/L (3.5-5.1)
[2024-04-02 14:54] LABS: Magnesium 1.9 mg/dL (1.6-2.6)
[2024-04-02] MEDS: BUMETANIDE 2.5mg/10ml (0.25 mg/ml) INJ IV SCH (17:38)
[2024-04-03] VITALS (19 sets, daily range): BP systolic 116–163; BP diastolic 66–101; PULSE 64–99; RESP 16–26; TEMP 97.8–99; O2SAT 92–98
[2024-04-03 05:25] LABS: Chloride 94 mmol/L (98-107); Potassium 3.6 mmol/L (3.5-5.1); Sodium 133 mmol/L (136-145)
[2024-04-03 05:26] LABS: Anion Gap 8 (5-15); Calcium 9.3 mg/dL (8.7-10.4); Carbon Dioxide 31 mmol/L (20-31)
[2024-04-03 05:31] LABS: BUN/Creatinine Ratio 17.9 (10.0-20.0); Blood Urea Nitrogen 14 mg/dL (9-23); Glucose 99 mg/dL (74-106)
[2024-04-03 05:32] LABS: Magnesium 1.6 mg/dL (1.6-2.6)
[2024-04-03] MEDS: MAGNESIUM SULFATE 1GM/100ML 100 ML IV SCH ×2 (09:41→15:24)
[2024-04-03] MEDS: ERTAPENEM SOD INJ 1 GM in SODIUM CHL 0.9% 50 ML IV SCH (11:26)
[2024-04-03] MEDS: Glucerna Carbsteady SHAKE Vanilla 8oz PO SCH (12:00)
[2024-04-04] VITALS (11 sets, daily range): BP systolic 72–122; BP diastolic 42–67; PULSE 68–86; RESP 16–18; TEMP 97.3–98.1; O2SAT 91–98
[2024-04-04] MEDS: SODIUM CHLORIDE 0.9% 500 ML IV ONE ×2 (02:00→11:14)
[2024-04-04 06:19] LABS: Anion Gap 8 (5-15); Carbon Dioxide 32 mmol/L (20-31); Chloride 95 mmol/L (98-107); Potassium 2.7 mmol/L (3.5-5.1); Sodium 135 mmol/L (136-145)
[2024-04-04 06:20] LABS: Calcium 8.7 mg/dL (8.7-10.4)
[2024-04-04 06:25] LABS: BUN/Creatinine Ratio 15.6 (10.0-20.0); Blood Urea Nitrogen 12 mg/dL (9-23); Glucose 98 mg/dL (74-106); Magnesium 2.1 mg/dL (1.6-2.6)
[2024-04-04 06:27] LABS: Phosphorus 2.2 mg/dL (2.4-5.1)
[2024-04-04] MEDS: FUROSEMIDE 20 MG TAB PO SCH (10:00)
[2024-04-04] MEDS: ERTAPENEM SOD INJ 1 GM in SODIUM CHL 0.9% 50 ML IV SCH (13:01)
[2024-04-04] MEDS: POTASSIUM PHOSPHATE 44 MEQ in D5W 5% 250 ML IV ONE (16:42)
[2024-04-05] VITALS (14 sets, daily range): BP systolic 91–136; BP diastolic 53–75; PULSE 65–89; RESP 12–20; TEMP 97.5–98.9; O2SAT 93–100
[2024-04-05 05:37] LABS: Basophils # (auto) 0.1 10 ^3/uL (0-0.2); Basophils % (auto) 0.9 % (0.0-2.0); Eosinophils # (auto) 0.1 10 ^3/uL (0-0.8); Neutrophils # (auto) 3.9 10 ^3/uL (1.6-8.6); Platelet Count (auto) 81 10^3/uL (140-450); White Blood Cell 6.1 10^3/uL (4.4-10.8)
[2024-04-05 05:38] LABS: Eosinophils % (auto) 1.6 % (0.0-7.0); Hematocrit 20.4 % (36.0-46.0); Lymphocytes % (auto) 16.9 % (10.0-50.0); Mean Corpuscular Hemoglobin 27.9 pg (28.0-32.0); Mean Corpuscular Hgb Conc. 33.4 g/dL (32.0-36.0); Mean Corpuscular Volume 83.7 fL (80.0-100.0); Monocytes % (auto) 16.2 % (0.0-12.0); Neutrophils % (auto) 64.4 % (37.0-80.0); Nucleated Red Blood Cells % 0.5 %; Red Blood Cells 2.44 10^6/uL (4.0-5.20); Red Cell Distribution Width 18.7 % (11.8-14.3)
[2024-04-05 05:56] LABS: Anion Gap 6 (5-15); Carbon Dioxide 34 mmol/L (20-31); Chloride 100 mmol/L (98-107); Potassium 2.8 mmol/L (3.5-5.1); Sodium 140 mmol/L (136-145)
[2024-04-05 05:58] LABS: Calcium 8.7 mg/dL (8.7-10.4)
[2024-04-05 06:02] LABS: Glucose 85 mg/dL (74-106)
[2024-04-05 06:03] LABS: BUN/Creatinine Ratio 14.1 (10.0-20.0); Blood Urea Nitrogen 12 mg/dL (9-23)
[2024-04-05 06:11] LABS: Hemoglobin 6.8 g/dL (12.2-16.2)
[2024-04-05] MEDS: POTASSIUM CHL 20MEQ/100ML 100 ML IV ONE (08:24)
[2024-04-05] MEDS: POTASSIUM CHL 20MEQ/100ML 100 ML IV SCH (10:56)
[2024-04-05] MEDS: FUROSEMIDE 40 MG TAB PO SCH (11:13)
[2024-04-05 18:40] LABS: Hematocrit 24.4 % (36.0-46.0); Hemoglobin 8.1 g/dL (12.2-16.2)
[2024-04-05 18:50] LABS: Chloride 103 mmol/L (98-107); Potassium 3.6 mmol/L (3.5-5.1); Sodium 140 mmol/L (136-145)
[2024-04-05 18:51] LABS: Anion Gap 7 (5-15); Calcium 8.5 mg/dL (8.7-10.4); Carbon Dioxide 30 mmol/L (20-31)
[2024-04-05 18:56] LABS: Blood Urea Nitrogen 12 mg/dL (9-23); Glucose 105 mg/dL (74-106)
[2024-04-06] VITALS (7 sets, daily range): BP systolic 104–144; BP diastolic 62–80; PULSE 72–84; RESP 14–19; TEMP 97.8–99.8; O2SAT 96–97
[2024-04-07] VITALS (7 sets, daily range): BP systolic 118–129; BP diastolic 68–76; PULSE 72–79; RESP 18–20; TEMP 97.9–98.6; O2SAT 89–97
[2024-04-07 08:28] LABS: Anion Gap 7 (5-15); Carbon Dioxide 31 mmol/L (20-31); Chloride 102 mmol/L (98-107); Potassium 3.1 mmol/L (3.5-5.1); Sodium 140 mmol/L (136-145)
[2024-04-07 08:29] LABS: Calcium 8.6 mg/dL (8.7-10.4); Hematocrit 26.3 % (36.0-46.0); Hemoglobin 8.6 g/dL (12.2-16.2); Mean Corpuscular Hemoglobin 28.5 pg (28.0-32.0); Mean Corpuscular Hgb Conc. 32.7 g/dL (32.0-36.0); Platelet Count (auto) 151 10^3/uL (140-450); Red Blood Cells 3.03 10^6/uL (4.0-5.20); Red Cell Distribution Width 18.9 % (11.8-14.3); White Blood Cell 5.6 10^3/uL (4.4-10.8)
[2024-04-07 08:30] LABS: Basophils % (manual) 0 (0.0-2.0); Blast Cells 0; Promyelocytes % 0; Reactive Lymphocytes 0
[2024-04-07 08:34] LABS: BUN/Creatinine Ratio 17.4 (10.0-20.0); Blood Urea Nitrogen 12 mg/dL (9-23); Glucose 82 mg/dL (74-106)
[2024-04-07 08:43] LABS: Anisocytosis Slight; Band Neutrophils % (manual) 6; Eosinophils % (manual) 4 (0-7); Lymphocytes % (manual) 16 (10.0-50.0); Metamyelocytes % 1; Monocytes % (manual) 12 (0-12); Myelocytes % 1; Platelet Estimate Adequate
[2024-04-07] MEDS: POTASSIUM EFFERVESENT TAB 25 MEQ PO ONE (13:54)
== END 2024-04-07 19:45 | disposition home health service (06) | DRG 870 ==
LOC: EDBD 11:21 → ER 11:21 → TELE 18:09 → ICU WEST 03-17 17:55 → DOU IN ICU 03-31 12:38 → TELE-WESTW 04-03 13:32
PROVIDERS: ADMIT Family Medicine; ATTEND Nurse Practitioner Acute Care
PROC: 0BH18EZ Insertion of Endotracheal Airway into Trachea, Via Natural or Artificial Opening Endoscopic (ICD-10-PCS; 2024-03-16)
PROC: 5A1955Z Respiratory Ventilation, Greater than 96 Consecutive Hours (ICD-10-PCS; 2024-03-16)
PROC: 05H433Z Insertion of Infusion Device into Left Innominate Vein, Percutaneous Approach (ICD-10-PCS; principal; 2024-03-20)
PROC: B54NZZA Ultrasonography of Left Upper Extremity Veins, Guidance (ICD-10-PCS; 2024-03-20)
PROC: 5A1D70Z Performance of Urinary Filtration, Intermittent, Less than 6 Hours Per Day (ICD-10-PCS; 2024-03-20)
PROC: 30233N1 Transfusion of Nonautologous Red Blood Cells into Peripheral Vein, Percutaneous Approach (ICD-10-PCS; 2024-03-21)
PROC: 5A1D70Z Performance of Urinary Filtration, Intermittent, Less than 6 Hours Per Day (ICD-10-PCS; 2024-03-25)
PROC: 5A1D70Z Performance of Urinary Filtration, Intermittent, Less than 6 Hours Per Day (ICD-10-PCS; 2024-03-27)
PROC: 5A1D70Z Performance of Urinary Filtration, Intermittent, Less than 6 Hours Per Day (ICD-10-PCS; 2024-03-29)
DX: A41.1 Sepsis due to other specified staphylococcus (principal); G93.41 Metabolic encephalopathy; J96.01 Acute respiratory failure with hypoxia; N17.0 Acute kidney failure with tubular necrosis; R65.21 Severe sepsis with septic shock; J15.29 Pneumonia due to other staphylococcus; J15.9 Unspecified bacterial pneumonia; E87.20 Acidosis, unspecified; N30.00 Acute cystitis without hematuria; J44.0 Chronic obstructive pulmonary disease with (acute) lower respiratory infection; Z16.24 Resistance to multiple antibiotics; D50.9 Iron deficiency anemia, unspecified; E87.6 Hypokalemia; D63.1 Anemia in chronic kidney disease; Z20.822 Contact with and (suspected) exposure to COVID-19; D69.6 Thrombocytopenia, unspecified; I12.9 Hypertensive chronic kidney disease with stage 1 through stage 4 chronic kidney disease, or unspecified chronic kidney disease; N18.9 Chronic kidney disease, unspecified; Z99.81 Dependence on supplemental oxygen
CPT/HCPCS: 36415; 36600; 70450; 71045; 76604; 76775; 80048; 80053; 80061; 80074; 80202; 81001; 82570; 82607; 82728; 82805; 82962; 83010; 83036; 83540; 83550; 83605; 83735; 83880; 84100; 84132; 84133; 84156; 84300; 84443; 85007; 85014; 85018; 85025; 85027; 85045; 85610; 86850; 86900; 86901; 86920; 87040; 87070; 87077; 87081; 87086; 87088; 87186; 87205; 87426; 87804; 90935; 92610; 93005; 93971; 94002; 94003; 94640; 97110; 97163; 97530; 99291; G0378; J0330; J1335; J1642; J1815; J2185; J2248; J2405; J2470; J3480; J7060; P9047